=== PATIENT | male | born 1990 | race American Indian/Alaskan Native ===

== ENCOUNTER 2019-05-28 08:18 | Emergency (ER) | payer SELFPAY ==
[2019-05-28 08:23] VITALS: BP 135/72
--- NOTE | 2019-05-28 08:39 | Emergency Department Report ---
Chief Complaint: Animal Bite Stated Complaint: ANIMAL Time Seen by Provider: 05/28/19 08:39 - HPI History of Present Illness: Mr. Love is a 29-year-old male who was bitten by a rat on his right index finger. He was reaching into a dark space when this bite occurred. He has a superficial excoriation 1 cm horizontal just proximal to the PIP. Full range of motion. No laceration exists which needs repair. Not a tetanus prone wound. No rabies exposure in this scenario. Medical screening exam performed and completed. I do not anticipate need for antibiotics. Discharged home suggested supportive care. - Exam Vital Signs: Vital Signs 05/28/19 08:22 Temperature 97.6 F Pulse Rate 99 H Respiratory 16 Rate Blood Pressure 135/72 O2 Sat by Pulse 100 Oximetry MSE screening note: Focused history and physical exam performed. Due to findings the following was ordered: ED Disposition for MSE Condition: Stable
== END 2019-05-28 08:57 | disposition left against medical advice (07) ==
LOC: ED 08:18
DX: S61.250A Open bite of right index finger without damage to nail, initial encounter (principal); W53.11XA Bitten by rat, initial encounter; Y93.89 Activity, other specified; Y92.89 Other specified places as the place of occurrence of the external cause; Y99.8 Other external cause status
CPT/HCPCS: 99282